=== PATIENT | male | born 1930 | race Asian ===

== ENCOUNTER 2016-12-23 09:07 | Day surgery (SDC) | payer MEDICARE, BC ==
[2016-12-22 13:03] VITALS: Ht 180.3 cm; Wt 79.5 kg
[~2016-12-23] VITALS: Ht 180.3 cm; Wt 79.5 kg
[2016-12-23] VITALS (25 sets, daily range): BP systolic 105–166; BP diastolic 51–77; PULSE 52–68; RESP 13–18
[~2016-12-23 09:07] MED LIST: CEFAZOLIN 1 GM INJ ONE; EPHEDrine SULFATE 50 MG/5 ML SYG ONE; LIDOCAINE 1% (MDV) 20 ML INJ ONE
[2016-12-23] MEDS ORDERED: GLIP5TAB13 PO (09:50)
[2016-12-23] MEDS ORDERED: METF500T4 PO (09:51)
[2016-12-23] MEDS ORDERED: LISI2.5T59 PO (09:51)
[2016-12-23] MEDS ORDERED: TEMA15CA6 PO (09:52)
[2016-12-23] MEDS ORDERED: CEFAZOLIN 2 GM/50 ML (PMX) 50 ML IVPB SCH (10:00)
[2016-12-23] MEDS ORDERED: BUPIVACAINE 0.5% (SDV) 30 ML INJ ONE (10:51)
[2016-12-23] MEDS ORDERED: POLYMYXIN/BACITRACIN 1L IRRIG ONE (10:51)
[2016-12-23] MEDS ORDERED: SUCCINYLCHOLINE CHLORIDE 100 MG/5 ML SYG IV ONE (10:54)
[2016-12-23] MEDS ORDERED: MIDAZOLAM 1 MG/ML 2 ML INJ ONE (10:54)
[2016-12-23] MEDS ORDERED: PROPOFOL 20 ML ONE (10:54)
[2016-12-23] MEDS ORDERED: FENTAnyl 50 MCG/ML VIAL ONE (10:54)
[2016-12-23] MEDS ORDERED: ROPIVACAINE 0.5 % 30 ML VIAL ONE (10:55)
[2016-12-23] MEDS ORDERED: PHENYLephrine (100 MCG/ML) 5ML SYG ONE (11:17)
[2016-12-23] MEDS ORDERED: ONDANSETRON 4 MG INJ ONE (11:32)
[2016-12-23] MEDS ORDERED: FAMOTIDINE 20 MG INJ ONE (11:32)
[2016-12-23 11:47] LABS: ALBUMIN 3.9 g/dl (3.3-4.9); BILIRUBIN,INDIRECT 0.2 mg/dl (0-1.1); BILIRUBIN,TOTAL 0.2 mg/dl (0.2-1.3); TOTAL PROTEIN 6.8 g/dl (6.1-8.1)
[2016-12-23 11:52] LABS: BASOPHILS % 0.5 % (0.0-2.0); EOSINOPHILS # 0.3 10^3/ul (0.0-0.5); EOSINOPHILS % 5.8 % (0.0-7.0); HEMATOCRIT 34.7 % (42.0-52.0); LYMPHOCYTES # 1.9 10^3/ul (0.8-2.9); LYMPHOCYTES % 43.3 % (15.0-51.0); MEAN CORPUSCULAR HEMOGLOBIN 28.6 pg (29.0-33.0); MEAN CORPUSCULAR HGB CONC 32.3 g/dl (32.0-37.0); MEAN CORPUSCULAR VOLUME 88.5 fl (82.0-101.0); MEAN PLATELET VOLUME 10.6 fl (7.4-10.4); MONOCYTE # 0.3 10^3/ul (0.3-0.9); MONOCYTES % 7.6 % (0.0-11.0); NEUTROPHILS % 42.3 % (39.0-77.0); PARTIAL THROMBOPLASTIN TIME 28.9 Sec (25.0-35.0); PLATELET COUNT 203 10^3/UL (140-415); PROTIME 13.2 Sec (12.2-14.2); RED BLOOD COUNT 3.92 10^6/ul (4.70-6.10); RED CELL DISTRIBUTION WIDTH 13.5 % (11.5-14.5); WHITE BLOOD COUNT 4.3 10^3/ul (4.8-10.8)
[2016-12-23 11:57] LABS: CALCIUM 8.9 mg/dl (8.4-10.2); CREATININE 1.13 mg/dl (0.61-1.24); POTASSIUM 4.9 mmol/L (3.5-5.1)
[2016-12-23 12:01] LABS: HOLD TRANSMISSIONS 1
[2016-12-23 12:04] LABS: HEMOGLOBIN 11.2 g/dl (14.0-18.0)
[2016-12-23] MEDS ORDERED: DIPHENHYDRAMINE 50 MG INJ IV PRN (13:00)
[2016-12-23] MEDS ORDERED: LABETALOL HCL 20MG INJ IV PRN (13:00)
[2016-12-23] MEDS ORDERED: HYDROmorphONE (0.2 MG/ML) 10ML SYG IV PRN (13:00)
[2016-12-23] MEDS ORDERED: hydrALAzine 20 MG INJ IV PRN (13:00)
[2016-12-23] MEDS ORDERED: MEPERIDINE 25 MG INJ IV PRN (13:00)
[2016-12-23] MEDS ORDERED: ONDANSETRON 4 MG INJ IV PRN (13:00)
--- NOTE | 2016-12-23 13:11 | OPPN ---
Date/Time of Note Date/Time of Note DATE: 12/23/16 TIME: 13:09 Operative Report Preoperative Diagnosis Right foot severe Estela deformity Right heel pain Postoperative Diagnosis Right foot severe Estela deformity Right heel pain Operation/Procedure Performed Surgical repair right severe Estela deformity Application of posterior splint Provider: CASANDRA MONROE DPM Anesthesia Type: general Estimated blood loss: 0 - 10 ml's Transfusion Required: no Specimens Bone from the left heel Complications: no CASANDRA MONROE DPM Dec 23, 2016 13:11
--- NOTE | 2016-12-23 13:12 | OPR ---
Date/Time of Note Date/Time of Note DATE: 12/23/16 TIME: 13:12 Operative Report Procedure Date: Dec 23, 2016 Preoperative Diagnosis Severe right foot Estela deformity Right foot pain Postoperative Diagnosis Severe right foot Estela deformity Right foot pain Operation Performed Surgical repair right Estela deformity Reattachment of Achilles tendon surgically Exostosectomy right foot Application of posterior splint Surgeon: CASANDRA MONROE DPM Anesthesia Type: general Estimated Blood Loss: 0 - 10 ml's Transfusion Required: no Specimens Bone from the right calcaneus Complications: no Pt Condition Post Procedure: stable Disposition: PACU Indications This is a pleasant 86-year-old male patient who is been suffering with right foot pain in the back of the hand for several years. The condition apparently has gotten worse. Patient reports significant difficulty wearing shoes because of the large bony prominence is present in the back of his right heel. He reports that he is unable to wear most of his shoes and because of the pain he is not able to do activities of daily living. Patient was fully evaluated at the office and x-rays were obtained which showed a large bony exostosis on the posterior aspect of the right heel. Risks and complications of this type surgery was discussed with patient in great detail. Risks and complications discussed, include but are not limited to, postoperative infection, postoperative pain, failure of surgery to correct problem, need for additional surgical procedures, deep venous thrombosis, limb loss and loss of life. No guarantee or warranty was given or implied as to the outcome of the procedure either in verbal or written form. Operative\Procedure Findings Large bony exostosis posterior right heel Procedure Description The patient was seen in the preoperative area. Proposed surgery was discussed with patient in great detail. Patient's family was present. Risks and complications of this type of surgery was discussed in detail. Opportunity was given to patient to ask questions and all questions were answered. Patient acknowledges understanding of the discussion. The patient was then taken to the operating room and was placed on the operating table in the supine position. The patient was then placed under general anesthesia and then was placed on prone position. The anesthesiologist gave the patient a popliteal block. A thigh tourniquet was applied to the right thigh. The right lower extremity was then scrubbed, prepped and draped in usual aseptic manner. Even though there was a thigh tourniquet, we did not use a tourniquet for this case. A lazy S type incision was made over the posterior aspect of the right heel using a #15 blade. Bleeders were cauterized as necessary. Dissection continued to the peritenon and the Achilles tendon was identified. Linear incision was made along the long axis of the tendon using a #10 blade. This was done all the way to bone. Posterior calcaneal large exostosis was exposed with partial detachment of the Achilles tendon. The tendon itself appears to be extremely thickened at the insertion site. Next, curved osteotomes were used to remove the excess bone from the posterior right heel. A rongeur was used to debride. A power rasp was utilized to smooth out all rough edges. The area was flushed with copious amounts of sterile normal saline. Next, 2 anchor holes were made on the posterior superior aspect of the calcaneus and anchors were placed in. Next, the right and left flaps of the Achilles tendon were tied down to bone using the provided sutures. The suture system is the suture bridge from [employer]. Once I was able to tack down the tendon to the bone , then I proceeded to create 2 more holes corresponding to the implant plugs to be utilized. I went ahead and tensioned one strand from the right side and one strand from the left side into the caudal lateral posterior calcaneus and then placed a suture anchor. Excess suture was cut and passed from the field. Same exact procedure was done for the posterior medial side of the calcaneus. The Achilles tendon was then reapproximated to bone. Excess tendon was sharply debrided and passed the back table. 3-0 Vicryl suture was used along with tissue graft from [employer] for closure of the Achilles tendon peritenon. Subcutaneous layer was closed using 4-0 Vicryl suture and the skin was closed using 5-0 Monocryl in subcuticular stitch pattern. Steri-Strips were applied. Sterile dressing was applied. The patient tolerated the procedure and anesthesia well. He was transferred to the recovery room with vital signs stable and vascular status intact to both feet. He is to remain nonweightbearing on the right foot. Postoperative orders are written. Patient will be followed up in 1 week. CASANDRA MONROE DPM Dec 23, 2016 13:12
--- NOTE | 2016-12-23 16:56 | RADRPT ---
PROCEDURE: XR Right Foot. CLINICAL INDICATION: Right foot pain. Postop. TECHNIQUE: 3 views. Frontal, lateral, and oblique. COMPARISON: None. FINDINGS: Bone detail is obscured by the overlying posterior splint. There is no fracture or dislocation. There are degenerative changes of the first metatarsal phalang eal joint with joint space narrowing and osteophytes. There is a plantar calcaneal spur. The articular surfaces are otherwise intact. There is no lytic or blastic lesion. IMPRESSION: 1. Bone detail obscured by the overlying cast. 2. 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 3. Plantar calcaneal spur. RPTAT: QQ .Ramiro Ross MD, MD Date Time Electronically viewed and signed by .Ramiro Ross MD, on 12/23/2016 16:56 .R/
== END 2016-12-23 15:22 | disposition home or self-care (01) ==
LOC: SDS 09:07
PROVIDERS: ATTEND Podiatrist Foot & Ankle Surgery
DX: M92.61 Juvenile osteochondrosis of tarsus, right ankle (principal); E11.9 Type 2 diabetes mellitus without complications
CPT/HCPCS: 27650; 28118; 73630; 80048; 80076; 82962; 85025; 85610; 85730; 88304; 88311; J0690; J2250; J2370; J2405; J2795; J3010; J7999